=== PATIENT | female | born 1975 | race Two or more races ===

== ENCOUNTER → 2020-03-31 | Outpatient (CLI) | payer OTHER | END | disposition home or self-care (01) | LOC: OFIC 805 13:30 | PROVIDERS: ATTEND Otolaryngology | DX: C73 Malignant neoplasm of thyroid gland (principal) ==

== ENCOUNTER 2020-04-04 12:05 | Outpatient (CLI) | payer OTHER | END 2020-04-04 12:52 | disposition home or self-care (01) | LOC: SONOGRAMA 12:05 | PROVIDERS: ATTEND Pathology Anatomic Pathology & Clinical Pathology | DX: R22.2 Localized swelling, mass and lump, trunk (principal) ==

== ENCOUNTER 2020-05-02 08:00 | Inpatient (IN) | payer OTHER ==
[~2020-05-02] VITALS: Ht 162.6 cm; Wt 101.2 kg
[2020-05-02] MEDS ORDERED: VITAMIN C500 M6 PO (10:37)
[2020-05-02] MEDS ORDERED: SYNTHROID75 MCG PO (10:37)
== END 2020-05-10 11:19 | disposition home or self-care (01) | DRG 627 ==
LOC: SURH 05-08 08:00 → O/R 05-09 08:20 → SURH 05-09 14:37
PROVIDERS: ADMIT Surgery; ATTEND Surgery
PROC: 0GTK0ZZ Resection of Thyroid Gland, Open Approach (ICD-10-PCS; principal; 2020-05-09 07:00)
DX: C73 Malignant neoplasm of thyroid gland (principal); Z20.828 Contact with and (suspected) exposure to other viral communicable diseases; R59.0 Localized enlarged lymph nodes

== ENCOUNTER 2025-02-03 10:27 | Outpatient (CLI) | payer OTHER ==
[~2025-02-03 10:27] MED LIST: SYNTHROID75 MCG PO; VITAMIN C500 M6 PO
[2025-02-03 11:20] LABS: BASO % 1.3 % (0.1-1.2); EOS # 0.52 (0.04-0.54); EOS % 6.0 % (0.7-7.0); LYMPH # 2.53 (1.18-3.74); LYMPH % 29.0 % (19.3-53.1); MEAN PLATELET VOLUME 10.40 fl (9.4-12.4); MONO # 0.55 (0.24-0.82); MONO % 6.3 % (4.7-12.5); NEUT # 5.00 (1.56-6.13); NEUT % 57.2 % (34.0-71.1); RED CELL DISTRIBUTION WIDTH 12.9 % (11.6-14.4)
[2025-02-03 12:21] LABS: ALT/SGPT 22.0 U/L (12-78); AST/SGOT 16.0 U/L (15-37); BILIRUBIN TOTAL 0.46 mg/dL (0.3-1.2); BUN CREA RATIO 16.0 (7.0-25.0); CHOL HDL RATIO 3.8 (0-5.0); CREATININE SERUM 0.68 mg/dL (0.55-1.02); GFR 91.96; GLOBULINA 3.2 G/DL (2.4-3.5); GLUCOSE FASTING 80.0 mg/dL (65-100); HDL 55.0 mg/dl (40-60); LDL 125.0 mg/dl (0-130); OSMOLALITY SERUM 276.0 MOSM/KG (275-295); T4 FREE 1.45 NG/ML (0.76-1.46); TSH 0.954 uIU/mL (0.358-3.74); VLDL 29.0 (0-39)
== END 2025-02-03 10:31 | disposition home or self-care (01) ==
LOC: LAB 10:27
PROVIDERS: ATTEND General Practice
DX: E89.0 Postprocedural hypothyroidism (principal); C73 Malignant neoplasm of thyroid gland; E28.2 Polycystic ovarian syndrome; E66.01 Morbid (severe) obesity due to excess calories; Z68.39 Body mass index [BMI] 39.0-39.9, adult; N92.5 Other specified irregular menstruation; R73.01 Impaired fasting glucose; Z13.1 Encounter for screening for diabetes mellitus

== ENCOUNTER 2025-02-03 11:01 | Outpatient (CLI) | payer OTHER | END 2025-02-03 11:05 | disposition home or self-care (01) | LOC: SONOGRAMA 11:01 | PROVIDERS: ATTEND General Practice | DX: C73 Malignant neoplasm of thyroid gland (principal) ==

== ENCOUNTER 2025-02-09 07:24 | Outpatient (CLI) | payer OTHER | END 2025-02-09 07:30 | disposition home or self-care (01) | LOC: SONOGRAMA 07:24 | DX: R10.10 Upper abdominal pain, unspecified (principal) ==

== ENCOUNTER 2025-02-09 09:02 | Outpatient (CLI) | payer OTHER ==
[2025-02-09 10:56] LABS: ALT/SGPT 21.0 U/L (12-78); AST/SGOT 13.0 U/L (15-37); BILIRUBIN TOTAL 0.4 mg/dL (0.3-1.2); BUN CREA RATIO 19.0 (7.0-25.0); CREATININE SERUM 0.62 mg/dL (0.55-1.02); GFR 102.31; GLOBULINA 3.2 G/DL (2.4-3.5); GLUCOSE FASTING 79.0 mg/dL (65-100); OSMOLALITY SERUM 278.0 MOSM/KG (275-295)
== END 2025-02-09 09:04 | disposition home or self-care (01) ==
LOC: LAB 09:02
DX: R10.10 Upper abdominal pain, unspecified (principal)